=== PATIENT | female | born 1990 | race Caucasian/White ===

== ENCOUNTER 2017-04-01 18:47 | Emergency (ER) | payer OTHER ==
[~2017-04-01] VITALS: Ht 182.9 cm; Wt 112.3 kg
[~2017-04-01 18:47] MED LIST: AZITHROMYCIN250 MG PO; BENTYL10 MG PO; CEFPODOXIME PR100 MG PO; CIPRO500 MG PO; EFFEXOR XR150 MG PO; ENDOCET 5-3251 EACH PO; FIORICET,ESG1 TABLET PO; MEDROL DOSEPAK4 MG PO; METHYLPHENIDATE36 MG PO; MOTRIN800 MG PO; Motrin PO; PERCOCET 5/31 TABLET PO; PREDNISONE20 MG PO; REGLAN10 MG PO; SKELAXIN800 MG PO; VALIUM5 MG PO; VENLAFAXINE HCL75 M3 PO; ZOFRAN4 MG PO
[2017-04-01 19:43] LABS: HEMATOCRIT 36.3 % (36.0-46.0); MCH 27.5 PG (29.0-34.0); MCHC 32.5 G/DL (30.0-36.0); MCV 84.6 FL (83-99); PLATELET COUNT 227 K/uL (156-360); RBC DIS.WIDTH-CV 12.9 % (11.8-14.6); RBC DIS.WIDTH-SD 39.5 % (39-53); RED BLOOD COUNT 4.29 M/uL (3.80-5.20)
[2017-04-01 19:44] LABS: WHITE BLOOD COUNT 8.1 K/uL (4.1-10.2)
[2017-04-01 20:03] LABS: D-DIMER ELISA 0.34 mg/L FEU (< 0.57)
[2017-04-01 20:09] LABS: CHLORIDE 103 mEq/L (99-109); POTASSIUM 3.7 mEq/L (3.7-5.4); SODIUM 137 mEq/L (136-147)
[2017-04-01 20:10] LABS: TROP-I INTERPRETATION NEGATIVE; TROPONIN-I < 0.01 ng/mL (0.0-0.30)
[2017-04-01 20:11] LABS: GLUCOSE 83 mg/dL (70-99)
[2017-04-01 20:12] LABS: ANION GAP 9 MEQ/L (2-14)
[2017-04-01 20:13] LABS: TOTAL BILIRUBIN 0.4 mg/dL (0.0-1.0)
[2017-04-01 20:15] LABS: ALKALINE PHOSPHATASE 39 IU/L (3-129); GFR ESTIMATE (CALCULATED) > 59 mL/min/
[2017-04-01 20:16] LABS: UREA NITROGEN (BUN) 19 mg/dL (9-23)
[2017-04-01 21:02] VITALS: BP 130/74
== END 2017-04-01 21:03 | disposition home or self-care (01) ==
LOC: RME 18:47 → EME 18:47 → RME 21:03
PROVIDERS: Physician Assistant
DX: R07.9 Chest pain, unspecified (principal); M25.512 Pain in left shoulder; M54.89 Other dorsalgia; R06.02 Shortness of breath
CPT/HCPCS: 71020; 80053; 84484; 85027; 85379; 93005; 99281; 99284

== ENCOUNTER 2017-09-22 18:40 | Emergency (ER) | payer OTHER ==
[~2017-09-22] VITALS: Ht 180.3 cm; Wt 109.0 kg
[2017-09-22 19:10] LABS: HEMATOCRIT 40.2 % (36.0-46.0); MCH 28.4 PG (29.0-34.0); MCHC 33.1 G/DL (30.0-36.0); MCV 85.9 FL (83-99); MEAN PLAT.VOLUME 11.5 uM^3 (9.5-12.4); PLATELET COUNT 233 K/uL (156-360); RBC DIS.WIDTH-CV 12.8 % (11.8-14.6); RBC DIS.WIDTH-SD 39.7 % (39-53); RED BLOOD COUNT 4.68 M/uL (3.80-5.20); WHITE BLOOD COUNT 10.1 K/uL (4.1-10.2)
[2017-09-22 19:19] LABS: CHLORIDE 104 mEq/L (99-109); SODIUM 137 mEq/L (136-147)
[2017-09-22 19:21] LABS: GLUCOSE 96 mg/dL (70-99)
[2017-09-22 19:23] LABS: ANION GAP 11 MEQ/L (2-14); TOTAL BILIRUBIN 0.5 mg/dL (0.0-1.0)
[2017-09-22 19:25] LABS: ALKALINE PHOSPHATASE 47 IU/L (3-129); GFR ESTIMATE (CALCULATED) > 59 mL/min/
[2017-09-22 19:26] LABS: UREA NITROGEN (BUN) 6 mg/dL (9-23)
[2017-09-22 19:26] LABS: ADD MIUA? YES; BILIRUBIN NEGATIVE; BLOOD SMALL; COLOR STRAW ((YELLOW)); GLUCOSE (STRIP) NEGATIVE; KETONES NEGATIVE; LEUKOCYTES NEGATIVE; NITRITE NEGATIVE; PROTEIN (STRIP) NEGATIVE; SPECIFIC GRAVITY 1.004 (1.000-1.030); UROBILINOGEN 0.2 MG/DL (0.2-1.0)
[2017-09-22 19:29] LABS: BACTERIA RARE /HPF; EPITHELIAL CELLS RARE /HPF; MUCUS TRACE /LPF; RED BLOOD CELLS 0-5 /HPF (0-5); UCUL ADDED? NO; WHITE BLOOD CELLS 0-5 /HPF (0-5)
[2017-09-22 19:40] LABS: QUANTITATIVE HCG < 4.0 MIU/ML
[2017-09-22 22:24] LABS: LIPASE 10 U/L (1.0-51.0)
[2017-09-23] MEDS ORDERED: NORCO 5/3251 TABLET PO (00:40)
[2017-09-23] MEDS ORDERED: ZOFRAN ODT4 MG PO (00:40)
[2017-09-23 00:49] VITALS: BP 115/72
[2017-09-25] MEDS ORDERED: HYDROCODON-ACE1 EAC7 PO (16:13)
[2017-09-25] MEDS ORDERED: ZOFRAN4 MG PO (16:13)
[2017-09-25] MEDS ORDERED: PROZAC20 MG PO (16:14)
[2017-09-25] MEDS ORDERED: GLUCOPHAGE500 MG PO (16:15)
[2017-09-25] MEDS ORDERED: CONCERTA36 MG PO (16:15)
[2017-09-25] MEDS ORDERED: CYANOCOBALAM1000 MCG PO (16:16)
[2017-09-25] MEDS ORDERED: VITAMIN D31000 UNIT PO (16:16)
[2017-09-25] MEDS ORDERED: PHENTERMINE H37.5 MG PO (16:17)
== END 2017-09-23 00:49 | disposition home or self-care (01) ==
LOC: EME 18:40
PROVIDERS: Nurse Practitioner Family
DX: K80.70 Calculus of gallbladder and bile duct without cholecystitis without obstruction (principal)
CPT/HCPCS: 76705; 80053; 81003; 83690; 84702; 85027; 85379; 93005; 99281; 99284

== ENCOUNTER 2017-09-28 11:50 | Day surgery (SDC) | payer OTHER ==
[~2017-09-28] VITALS: Ht 180.3 cm; Wt 105.2 kg
[~2017-09-28 11:50] MED LIST changes: +CONCERTA36 MG PO; +CYANOCOBALAM1000 MCG PO; +GLUCOPHAGE500 MG PO; +HYDROCODON-ACE1 EAC7 PO; +NORCO 5/3251 TABLET PO; +PHENTERMINE H37.5 MG PO; +PROZAC20 MG PO; +VITAMIN D31000 UNIT PO; +ZOFRAN ODT4 MG PO
[2017-09-28 12:20] VITALS: BP 118/56
[2017-09-28] MEDS ORDERED: PERCOCET 5/31 TABLET PO (15:08)
[2017-09-28 16:48] VITALS: BP 98/53
[2017-09-28 17:55] VITALS: BP 92/60
[2017-09-28 19:07] VITALS: BP 102/54
== END 2017-09-28 19:10 | disposition home or self-care (01) ==
LOC: SDC 11:50
PROC: 0FT44ZZ Resection of Gallbladder, Percutaneous Endoscopic Approach (ICD-10-PCS; principal; 2017-09-28)
DX: K80.12 Calculus of gallbladder with acute and chronic cholecystitis without obstruction (principal); Z77.22 Contact with and (suspected) exposure to environmental tobacco smoke (acute) (chronic); F41.8 Other specified anxiety disorders; E66.01 Morbid (severe) obesity due to excess calories; Z68.32 Body mass index [BMI] 32.0-32.9, adult
CPT/HCPCS: 88304; J0131; J0690; J1100; J1170; J1885; J2250; J2405; J2765; J3010; Q0175

== ENCOUNTER 2017-10-07 22:39 | Emergency (ER) | payer OTHER ==
[~2017-10-07] VITALS: Ht 180.3 cm; Wt 104.6 kg
[2017-10-08 01:02] VITALS: BP 125/82
== END 2017-10-08 01:22 | disposition home or self-care (01) ==
LOC: EME 22:39
DX: G43.909 Migraine, unspecified, not intractable, without status migrainosus (principal)
CPT/HCPCS: 99281; 99284; J0780; J1200; J1885; J7030